=== PATIENT | male | born 1945 | race Caucasian/White ===

== ENCOUNTER 2017-01-18 05:21 | Emergency (ER) | payer MEDICARE, OTHER ==
[2017-01-18] MEDS ORDERED: DEXAMETHASONE 10 MG/ML VIAL ONE (06:23)
--- NOTE | 2017-01-18 08:40 | ER PHYSICIAN DOCUMENTATION ---
Physician Documentation [facility] Name:Emanuel Tijerina Age:71 yrs Sex:Male :1945 Arrival Date:01/18/2017 Time:05:21 Bed1 Private MD:Physician, No ED Favian Teran Disposition: 01/18/17 06:05 Discharged to Home/Self Care. Impression: Bronchitis Acute. - Condition is Good. - Discharge Instructions: BRONCHITIS, Abx Tx (Adult), BRONCHITIS, No Abx (Adult). - Prescriptions for Zithromax Z- Mayur 250 mg Oral Tablet - take 1 tablet by ORAL route as directed for 5 days Day 1 - take two (2) tablets one time. Day 2, 3, 4 , 5 take one (1) tablet once daily.; 6 tablet. - Medical Reconciliation form form. - Follow up: Private Physician; When: 1 week. - Problem is new. - Symptoms are unchanged. HPI: 01/18 06:07 This 71 yrs old Male presents to ER via Walk In with complaints of Chest ak Congestion. 06:07 has had several days of runny nose, congestion, at times bringing up some thick mucous, ak similar to prev, last episode 2y ago, trying robitussin and flonase without good relief. no cp/sob. no abd pain. from [place], here 1w, doing well overall, no leg swelling. only PMH is some controlled HLD, BPH, etc. tonight had some trouble sleeping due to congestion and a little anxiety, did take some decongestants which may account for this and bp, no hx of htn. no rash. no ear pain. no schuster. no f/c/n/v.. Severity of symptoms: At their worst the symptoms were moderate in the emergency department the symptoms are unchanged. Historical: - Allergies: No known drug Allergies; - Home Meds: 1. Pravachol Oral 2. Fish Oil oral 3. Flomax Oral - Tetanus: < 10 years. - Ebola Screening: : Patient negative for fever greater than or equal to 101.5 degrees Fahrenheit, and additional compatible Ebola Virus Disease symptoms. Patient denies exposure to infectious person. Patient denies travel to an Ebola-affected area in the 21 days before illness onset. No symptoms or risks identified at this time. . - Family history: No immediate family members are acutely ill. - Immunization history: Flu Vaccine < 1 year. - Social history: Smoking status: Patient states was never smoker of tobacco. ROS: 06:09 Constitutional: Negative for chills, fatigue, fever. ak 06:09 Cardiovascular: Negative for chest pain, edema, orthopnea, palpitations, paroxysmal nocturnal dyspnea. 06:09 Respiratory: Positive for cough, small amount of green sputum, Negative for dyspnea on exertion, hemoptysis, orthopnea, pleurisy, shortness of breath, wheezing. 06:09 Abdomen/GI: Negative for abdominal pain, nausea, vomiting. 06:09 Skin: Negative for 06:09 All other systems are negative. Exam: 06:10 Constitutional: The patient appears alert, awake, comfortable, well developed, well ak hydrated, well groomed, well nourished. 06:10 ENT: External ear(s): no acute changes, Ear canal(s): are normal, TM's: are normal, Nose: Turbinates: are swollen bilaterally, Posterior pharynx: is normal. 06:10 Cardiovascular: Rate: normal, Rhythm: regular, Pulses: no pulse deficits are appreciated, Heart sounds: normal, Edema: is not appreciated. 06:10 Respiratory: the patient does not display signs of respiratory distress, Respirations: normal, Breath sounds: are normal. 06:10 Abdomen/GI: Inspection: abdomen appears normal. 06:10 Skin: Appearance: Color: normal in color, pink. Vital Signs: 05:25 BP 159 / 70; Pulse 80; Resp 16; Pulse Ox 91% on R/A; Weight 97.52 kg; Height 5 ft. 11 em1 in. (180.34 cm); Pain 4/10; 05:25 Body Mass Index 29.99 (97.52 kg, 180.34 cm) em1 MDM: 06:04 Patient medically screened. ak 06:11 Differential Diagnosis viral uri. bronchitis. environmental allergies. pneumonia. Data ak reviewed: vital signs, nurses notes, and as a result, I will discharge patient. ED course: discussed azith/abx, will give script, pt will take/fill if necessary. likely improvement with decadron, per both hx/exam and past hx, will be adequate. pt understands precautions/instructions. Dispensed Medications: 06:15 Drug: Decadron 10 mg; Route: IM; Site: right gluteus; mv 06:35 Follow up: Response: No adverse reaction mv Signatures: keven wood Beth 2 Favian Johnston MD MD ak
--- NOTE | 2017-01-18 08:40 | ER NURSING DOCUMENTATION ---
Nurse's Notes Name:Emanuel Tijerina Age:71 yrs Sex:Male :1945 Arrival Date:01/18/2017 Time:05:21 Bed1 Private MD:Lucinda Garcia Diagnosis:Bronchitis Acute Presentation: 01/18 05:26 Presenting complaint: Patient states: drainage in "lungs" for the past 3 days and just mv developed sore throat as well. took Flonase and Robitussin without relief. 05:29 Presenting complaint: Patient states: cough and congestion x 2 days. denies fevers. bw2 Transition of care: patient was not received from another setting of care. 05:29 Acuity: YULIYA 4 bw2 05:29 Method Of Arrival: Walk In 2 Triage Assessment: 05:31 General: Appears in no apparent distress, comfortable, Behavior is appropriate for age, bw2 cooperative. Pain: Denies pain. Respiratory: Breath sounds are clear bilaterally. Reports cough that is non-productive. Historical: - Allergies: No known drug Allergies; - Home Meds: 1. Pravachol Oral 2. Fish Oil oral 3. Flomax Oral - Tetanus: < 10 years. - Ebola Screening: : Patient negative for fever greater than or equal to 101.5 degrees Fahrenheit, and additional compatible Ebola Virus Disease symptoms. Patient denies exposure to infectious person. Patient denies travel to an Ebola-affected area in the 21 days before illness onset. No symptoms or risks identified at this time. . - Family history: No immediate family members are acutely ill. - Immunization history: Flu Vaccine < 1 year. - Social history: Smoking status: Patient states was never smoker of tobacco. Screenin:32 Infectious Disease Risk None. Abuse screen: Denies threats or abuse. Nutritional bw2 screening: No deficits noted. Assessment: 05:31 See Triage Assessment done by same RN. bw2 Vital Signs: 05:25 BP 159 / 70; Pulse 80; Resp 16; Pulse Ox 91% on R/A; Weight 97.52 kg; Height 5 ft. 11 em1 in. (180.34 cm); Pain 4/10; 05:25 Body Mass Index 29.99 (97.52 kg, 180.34 cm) em1 ED Course: 05:22 Patient arrived in ED. em2 05:22 Physician, No is Private Physician. em2 05:25 keven wood is Primary Nurse. mv 05:30 Triage completed. bw2 05:32 Valuables Remains with patient Patient has correct armband on for positive bw2 identification. 06:04 Favian Gardner MD is Attending Physician. ak Administered Medications: 06:15 Drug: Decadron 10 mg; Route: IM; Site: right gluteus; mv 06:35 Follow up: Response: No adverse reaction mv Outcome: 06:05 Discharge ordered by . ak 06:33 Discharged to home mv 06:33 Condition: good 06:33 Discharge Assessment: Patient awake, alert and oriented x 3. No cognitive and/or functional deficits noted. Patient verbalized understanding of disposition instructions. 06:33 Discharge instructions given to patient, Instructed on discharge instructions, follow up and referral plans. medication usage, Demonstrated understanding of instructions, medications, Prescriptions given X 1. 06:34 Patient left the ED. mv 01/19 14:49 Discharge F/U Call: Spoke with: patient. Overall Care on a scale of 1-10 with 10 tg being the best care, you rate our care as: Other comments: Not feeling better, doing all the things Dr gardner recommended. Will wait until tmrw to start ABX. Appreciative of care. Signatures: Tio Jha, PERRY RN tg Meinking-tech, Nicole-tech em1 Meiarleen-reg, Nicole-reg em2 keven wood Liza Dasilvah bw2 Favian Gardner MD MD ak
== END 2017-01-18 06:35 | disposition home or self-care (01) ==
LOC: ER 05:21
DX: J20.9 Acute bronchitis, unspecified (principal); Z79.899 Other long term (current) drug therapy
CPT/HCPCS: 96372; 99283; J1100